=== PATIENT | male | born 1970 | race Caucasian/White ===

== ENCOUNTER → 2019-06-18 | Outpatient (CLI) | payer BC ==
--- NOTE | 2019-06-18 16:10 | PCVCIMAG ---
APPROVED REPORT Study performed: 06/18/2019 14:26:56 Exam: Stress Echocardiogram Indication: Chest pain Patient Location: Echo lab Stress Nurse: Jessica Lara RN Status: routine Ht: 5 ft 9 in HR: 113 bpm BP: 120/70 mmHg Rhythm: NSR Medical History Medical History: HTN, Pre-diabetes Procedure The patient underwent an Exercise Stress Test using the Edy Protocol. Blood pressure, heart rate, and EKG were monitored. An Echocardiogram was performed by dental laboratory technician apprentice in four stages in quad fashion. At peak stress, four selected images were obtained and placed side by side with resting images for comparison. Stress Test Details Stress Test: Exercise stress testing was performed using a Edy protocol. HR Resting HR: 113 bpmMax Heart Rate (APMHR): 169 bpm Max HR Achieved: 187 bpmTarget HR (85% APMHR): 143 bpm % of APMHR: 110 Recovery HR: 127 bpm HR response to stress: Accelerated HR response to stress BP Resting BP: 120/70 mmHg Max BP: 168/74 mmHg Recovery BP: 132/72 mmHg BP response to stress: Normal blood pressure response to stress. ECG Resting ECG: Sinus Tachycardia Stress ECG: Sinus Rhythm ST Change: Normal Maximum ST Deviation: 0 mm Arrhythmia: VPC Recovery ECG: Sinus Tachycardia Recovery ST Change: Normal Recovery ST Deviation: 0 mm Recovery Arrhythmia: None Clinical Reason for Termination: Maximal effort Exercise duration: 10 min 15 sec Highest Stage Achieved: Stage 4: 4.2 mph at 16% grade. Exercise capacity: 13.70 METs Overall Exercise Capacity for Age: Normal Angina Score: None Stress ECG Conclusion Clinical: Non-ischemic ECG: Non-ischemic Suárez Treadmill Score is 10.0 which is Low risk. Pre-Stress Echo The resting Echocardiogram showed normal left ventricular contractility with an estimated Ejection Fraction of about 55-60%. Normal wall motion in all segments on baseline images. Post-Stress Echo The stress Echocardiogram showed normal left ventricular contractility with an estimated Ejection Fraction of about 60-65%. Normal augmentation of wall motion in all segments on post stress images. Clinical No clinical or ECG evidence for ischemia. Conclusion Clinical Response: Non-ischemic Exercise Capacity: Average Stress ECG Response: Non-ischemic Stress Echo Images: Non-ischemic The left ventricle is normal in size and wall thickness in both the rest and stress images. Trace triscuspid regurgitation. Pulmonary artery pressure is 32mmHg. No other valvular insufficiencies or stenosis. Normal stress echocardiogram with maximal exercise stress. <Conclusion> The left ventricle is normal in size and wall thickness in both the rest and stress images. Trace triscuspid regurgitation. Pulmonary artery pressure is 32mmHg. No other valvular insufficiencies or stenosis. Normal stress echocardiogram with maximal exercise stress.
== END | disposition home or self-care (01) ==
LOC: PCVCIMAG 14:27
PROVIDERS: ATTEND Internal Medicine
DX: R07.9 Chest pain, unspecified (principal)
CPT/HCPCS: 93325; 93351